=== PATIENT | female | born 1975 | race Caucasian/White ===

== ENCOUNTER → 2017-03-20 | Outpatient (CLI) | payer BC ==
--- NOTE | 2017-03-21 03:36 | REP ---
Clinical: Trauma. Technique: AP, lateral, bilateral oblique views. Findings: The carpal bones, surrounding osseous structures, soft tissues, and joint spaces are normal. There is no evidence for acute fracture or dislocation. No subcutaneous emphysema or radiodense foreign body. Impression: Normal wrist series. No acute fracture or dislocation Signed by Bryan Montez MD 03/21/2017 12:45 A
== END ==
LOC: M WUC 16:27
PROVIDERS: ATTEND Physician Assistant
DX: S60.212A Contusion of left wrist, initial encounter (principal); X58.XXXA Exposure to other specified factors, initial encounter; Y92.89 Other specified places as the place of occurrence of the external cause

== ENCOUNTER 2017-04-22 18:21 | Emergency (ER) | payer BC ==
[~2017-04-22] VITALS: Ht 165.1 cm; Wt 104.3 kg
[2017-04-22] MEDS ORDERED: TETRACAINE 0.5% OPHTH SOLN 4ML OU ONE (18:45)
[2017-04-22] MEDS ORDERED: FLUORESCEIN OPHTH 1 MG STRIP OU ONE (18:45)
[2017-04-22] MEDS ORDERED: CIPROFLOXACIN 0.3% OPHTH SOLN 2.5ML OU ONE (19:30)
[2017-04-22 19:32] VITALS: BP 132/78
== END 2017-04-22 19:40 | disposition home or self-care (01) ==
LOC: M ED 18:56
DX: H10.33 Unspecified acute conjunctivitis, bilateral (principal); S05.02XA Injury of conjunctiva and corneal abrasion without foreign body, left eye, initial encounter; X58.XXXA Exposure to other specified factors, initial encounter; Y92.099 Unspecified place in other non-institutional residence as the place of occurrence of the external cause; Y93.89 Activity, other specified; Y99.9 Unspecified external cause status